=== PATIENT | male | born 1980 | race Caucasian/White ===

== ENCOUNTER 2017-05-08 10:32 | Emergency (ER) | payer OTHER ==
[~2017-05-08] VITALS: Ht 185.4 cm; Wt 173.3 kg
--- NOTE | ~2017-05-08 | US85 ---
[facility] A Service of [facility] & [facility] RADIOLOGY TEXT RESULTS PATIENT: RAHEEM FERREIRA LOCATION: [facility] : 84 UNIT #: [id number] AGE: [address]: Juan A Flower MD SEX: M ORDER DR: [id number] [facility] [address] [place], [place] [address] [id number] MR#: [id number] Acc #: [id number] NAME: RAHEEM FERREIRA. : 1980 SEX: M STUDY DATE/TIME: 05/08/2017 11:33 UNIT: [facility] ROOM: STUDY DESCRIPTION: [employer] Attending Physician: Juan A Flower M.D. Ordering Physician: Juan A Flower M.D. Primary Care Physician: Generic Doctor Not In System MEDICAL IMAGING REPORT This report is preliminary unless electronic signature is present EXAM Right lower extremity venous duplex 05/08/2017 HISTORY Right lower extremity pain and edema for 3 weeks with heat and redness for 1 day. Evaluate for deep vein thrombosis. TECHNIQUE Thornton-scale images of the right lower extremity were obtained, as well as Doppler waveforms, spectral analysis, and color flow Doppler imaging. FINDINGS There is normal blood flow and compressibility in the right common femoral vein, deep femoral vein, superficial femoral vein, and popliteal vein. Normal blood flow and compressibility are seen in the deep veins of the right calf. There is nonocclusive thrombus in the distal aspect of the right greater saphenous vein characteristic of superficial thrombophlebitis. IMPRESSION 1. No evidence of deep vein thrombosis in the right lower extremity. 2. Nonocclusive thrombus in the distal aspect of the right greater saphenous vein characteristic of superficial thrombophlebitis. STAT * RESULT Dictated by... Naren Mtz M.D. THIS IS AN ELECTRONICALLY VERIFIED REPORT Naren Mtz M.D. at 05/09/2017 7:26 AM KRT/js STS. [facility] A Service of [facility] & [facility] RADIOLOGY TEXT RESULTS PATIENT: RAHEEM FERREIRA LOCATION: [facility] #: [id number] : 84 UNIT #: [id number] AGE: [address]: Juan A Flower MD SEX: M ORDER DR: TD: 05/08/2017 12:01 JOB #: [id number] MEDICAL IMAGING REPORT Page 1 of 1 COPY
[~2017-05-08 10:32] MED LIST: ASPIRIN; MOBIC15 MG PO
== END 2017-05-08 12:50 | disposition home or self-care (01) ==
LOC: CED 10:32
DX: L03.115 Cellulitis of right lower limb (principal); Z88.1 Allergy status to other antibiotic agents
CPT/HCPCS: 93971; 99284